=== PATIENT | male | born 1965 | race Caucasian/White ===

== ENCOUNTER 2024-12-28 06:32 | Day surgery (SDC) | payer BC, SELFPAY ==
[2024-12-28 09:17] LABS: Glucose - Point of Care 99 mg/dl (70-99)
== END 2024-12-28 10:58 | disposition home or self-care (01) ==
LOC: GI 06:32
PROVIDERS: ATTENDING PHYSICIAN Surgery
DX: Z12.11 Encounter for screening for malignant neoplasm of colon (principal); K57.30 Diverticulosis of large intestine without perforation or abscess without bleeding; D12.2 Benign neoplasm of ascending colon; D12.5 Benign neoplasm of sigmoid colon
CPT/HCPCS: 45380; 88305; 82962